=== PATIENT | female | born 1935 | race Caucasian/White ===

== ENCOUNTER 2017-09-23 22:18 | Emergency (ER) | payer MEDICARE ==
[~2017-09-23] VITALS: Ht 167.6 cm; Wt 54.4 kg
[~2017-09-23 22:18] MED LIST: ASPI81 CHEW; ATOR40TA49 PO; FURO10S PO; GLUCTAB PO; LISI30TA44 PO; MACR100C PO; METO100T PO; OMEP20TA39 PO
[2017-09-23 22:30] VITALS: BP 185/80; PULSE 73; RESP 20; TEMP 97.5; O2SAT 97
--- NOTE | 2017-09-23 22:44 | PD ---
HPI Chief Complaint: Complaint Time Seen by Provider: 22:39 Travel History International Travel<30 days: No Contact w/Intl Traveler<30days: No Traveled to known affect area: No History of Present Illness HPI The patient is an 82-year-old female that complains of dysuria, frequency and urgency and a minimal amount of flank pain for 4 days. She denies any fever, nausea or vomiting. She had a similar episode 2 years ago for which she was successfully treated with Macrobid. She is not sexually active and she does wipe correctly after a bowel movement. PFSH Past Medical History Cardiac Catheterization: Yes (stents placed.) High Cholesterol: Yes Diabetes: Yes Diminished Hearing: No Genitourinary: Yes (UTI's) Hypertension: Yes Menopausal: Yes Past Surgical History Appendectomy: Yes Coronary Stent: Yes Social History Alcohol Use: No Tobacco Use: No Substance Use: No Allergies-Medications (Allergen,Severity, Reaction): Coded Allergies: shellfish derived (Verified Allergy, Intermediate, Hives, 09/23/17) Sulfa (Sulfonamide Antibiotics) (Unverified Allergy, Unknown, 05/31/17) pt sts she is unsure "doesnt agree w me" penicillin G (Unverified Allergy, Unknown, 05/31/17) unk per pt, sts "20 years ago" Reported Meds & Prescriptions Reported Meds & Active Scripts Active Pyridium (Phenazopyridine HCl) 100 Mg Tab 100 Mg PO Q8H PRN Macrobid (Nitrofurantoin Monoh/Nitrofur Macro) 100 Mg Cap 100 Mg PO BID 10 Days Macrobid (Nitrofurantoin Macrocrystals) 100 Mg Cap 100 Mg PO BID 7 Days Reported Lasix (Furosemide) 40 Mg Tab 40 Mg PO DAILY Lipitor (Atorvastatin Calcium) 40 Mg Tab 40 Mg PO HS Starlix (Nateglinide) 60 Mg Tab 60 Mg PO DAILY Metformin (Metformin HCl) 500 Mg Tab 500 Mg PO TIDPC Omeprazole 20 Mg Tab 20 Mg PO DAILY PRN Metoprolol Tartrate 50 Mg Tab 50 Mg PO BID Lisinopril 30 Mg Tab 30 Mg PO DAILY Aspirin Low Dose (Aspirin) 81 Mg Chew 81 Mg CHEW DAILY Furosemide 10 Mg/Ml [place] 20 Mg PO DIRECTED Review of Systems Except as stated in HPI: all other systems reviewed are Neg Physical Exam Narrative GENERAL: The patient is alert, oriented 3 and slight apparent distress with her urinary symptoms. Her vital signs show blood pressure 185/80 but otherwise normal. SKIN: Focused skin assessment warm/dry. HEAD: Atraumatic. Normocephalic. EYES: Pupils equal and round. No scleral icterus. No injection or drainage. ENT: No nasal bleeding or discharge. Mucous membranes pink and moist. NECK: Trachea midline. No JVD. CARDIOVASCULAR: Regular rate and rhythm. No murmur appreciated. RESPIRATORY: No accessory muscle use. Clear to auscultation. Breath sounds equal bilaterally. GASTROINTESTINAL: Abdomen soft, with slight discomfort on the suprapubic area midline, nondistended. Hepatic and splenic margins not palpable. There is minimal right flank tenderness on direct palpation. No guarding or rebound is present. MUSCULOSKELETAL: No obvious deformities. No clubbing. No cyanosis. No edema. NEUROLOGICAL: Awake and alert. No obvious cranial nerve deficits. Motor grossly within normal limits. Normal speech. PSYCHIATRIC: Appropriate mood and affect; insight and judgment normal. Data Data Last Documented VS Vital Signs Date Time Temp Pulse Resp B/P (MAP) Pulse Ox O2 Delivery O2 Flow Rate FiO2 09/23/17 23:33 72 18 203/82 (122) 98 09/23/17 22:30 97.5 Orders Orders Urinalysis - C+S If Indicated (09/23/17 22:49) Urine Culture (09/23/17 22:40) Nitrofurantoin Monohyd Macrocr (Macrobid (09/23/17 23:15) Phenazopyridine (Pyridium) (09/23/17 23:15) Labs Laboratory Tests Test 09/23/17 22:40 Urine Color YELLOW Urine Turbidity CLOUDY Urine pH 6.0 Urine Specific [place] 1.012 Urine Protein TRACE mg/dL Urine Glucose (UA) NEG mg/dL Urine Ketones NEG mg/dL Urine Occult Blood MOD Urine Nitrite POS Urine Bilirubin NEG Urine Leukocyte Esterase LARGE Urine RBC 10-14 /hpf Urine WBC INNUM /hpf Urine Squamous Epithelial Cells 0-5 /hpf Urine Bacteria MANY /hpf Microscopic Urinalysis Comment CULTURE INDICATED MDM Medical Decision Making Medical Screen Exam Complete: Yes Emergency Medical Condition: Yes Medical Record Reviewed: Yes Interpretation(s) The urine shows cloudy turbidity, moderate occult blood, positive nitrite, large leukocyte Estrace with 10-14 red cells and innumerable white cells with many bacteria and culture is indicated. Differential Diagnosis Cystitis, pyelonephritis, interstitial cystitis-highly unlikely Narrative Course The patient has a cystitis. She does have some slight flank pain which may be an early pyelonephritis but most all of her symptoms are cystitis. She is to increase her liquid intake, is given Macrobid 100 mg twice daily for 10 days and Pyridium. Diagnosis Primary Impression: Cystitis Additional Instructions: The antibiotic is one tablet twice daily for 10 days. Drink plenty of liquids to establish a good urine flow through your kidneys. The Pyridium is one tablet 3 times daily as needed to reduce your symptoms. Med/Other Pt SpecificInfo: Prescription(s) given Scripts Phenazopyridine (Pyridium) 100 Mg Tab 100 MG PO Q8H Y for DYSURIA, #15 TAB 0 Refills Prov: Manfred Villanueva MD 09/23/17 Nitrofurantoin Monohydrate Macrocrystals (Macrobid) 100 Mg Cap 100 MG PO BID for Infection for 10 Days, #20 CAP 0 Refills Prov: Manfred Villanueva MD 09/23/17 Disposition: 01 DISCHARGE HOME Condition: Stable Manfred Villanueva MD Sep 23, 2017 22:44
[2017-09-23 22:55] LABS: BLOOD, URINE MOD (NEG); GLUCOSE,URINE NEG (NEG); KETONE, URINE NEG (NEG); NITRITE,URINE POS (NEG)
[2017-09-23 22:58] LABS: URINE COLOR YELLOW (YELLW/STRAW)
[2017-09-23 22:59] LABS: BACTERIA, URINE MANY /hpf; COMMENT (UR) CULTURE INDICATED; CULTURE IF INDICATED CULTURE INDICATED; SQUAMOUS EPITHELIAL CELL URINE 0-5 /hpf (0-5); WBC, URINE INNUM /hpf (0-5)
[2017-09-23] MEDS ORDERED: METO50TA PO (23:03)
[2017-09-23] MEDS ORDERED: ASPI81CH6 CHEW (23:03)
[2017-09-23] MEDS ORDERED: METF500T PO (23:03)
[2017-09-23] MEDS ORDERED: LISI30TA4 PO (23:03)
[2017-09-23] MEDS ORDERED: OMEP20TA93 PO (23:03)
[2017-09-23] MEDS ORDERED: LIPI40TA PO (23:03)
[2017-09-23] MEDS ORDERED: STAR60TA PO (23:03)
[2017-09-23] MEDS ORDERED: FURO1TAB60 PO (23:03)
[2017-09-23] MEDS ORDERED: MACR100C2 PO (23:09)
[2017-09-23] MEDS ORDERED: PHEN0.4T PO (23:09)
[2017-09-23] MEDS ORDERED: NITROFURANTOIN MONOHYD MACROCR 100 MG CAP PO ONE (23:15)
[2017-09-23] MEDS ORDERED: PHENAZOPYRIDINE HCL 100 MG TAB PO ONE (23:15)
[2017-09-23 23:33] VITALS: BP 203/82
== END 2017-09-23 23:33 | disposition home or self-care (01) ==
LOC: PHED 22:18
DX: N30.91 Cystitis, unspecified with hematuria (principal); B96.20 Unspecified Escherichia coli [E. coli] as the cause of diseases classified elsewhere; E11.9 Type 2 diabetes mellitus without complications; I10 Essential (primary) hypertension; E78.00 Pure hypercholesterolemia, unspecified; Z79.84 Long term (current) use of oral hypoglycemic drugs; Z87.440 Personal history of urinary (tract) infections
CPT/HCPCS: 81001; 87077; 87086; 87186; 99283

== ENCOUNTER 2017-10-14 20:44 | Emergency (ER) | payer MEDICARE ==
[~2017-10-14 20:44] MED LIST changes: -ASPI81 CHEW; +ASPI81CH6 CHEW; -ATOR40TA49 PO; +FURO1TAB60 PO; -GLUCTAB PO; +LIPI40TA PO; +LISI30TA4 PO; -LISI30TA44 PO; +MACR100C2 PO; +METF500T PO; -METO100T PO; +METO50TA PO; -OMEP20TA39 PO; +OMEP20TA93 PO; +PHEN0.4T PO; +STAR60TA PO
[2017-10-14 20:50] VITALS: BP 162/70; PULSE 73; RESP 20; TEMP 97.7; O2SAT 97
--- NOTE | 2017-10-14 21:12 | PD ---
HPI Chief Complaint: Complaint Time Seen by Provider: 21:03 Travel History International Travel<30 days: No Contact w/Intl Traveler<30days: No Traveled to known affect area: No History of Present Illness HPI The patient is an 82-year-old female that I saw on the of this month for urinary tract infection-cystitis. She was given a 10 day course of Macrobid and did well while she was on Macrobid and until several days ago when she started complaining of frequency and dysuria and urgency. She does wipe from front to back when having a bowel movement and cannot identify any problems while she is having a recurrent urinary tract infection. She denies any nausea , vomiting, fever and has some minimal flank pain on the left. PFSH Past Medical History Cardiac Catheterization: Yes (stents placed.) High Cholesterol: Yes Chest Pain: Yes Coronary Artery Disease: Yes Diabetes: Yes Diminished Hearing: No Genitourinary: Yes (UTI's) Hypertension: Yes Menopausal: Yes : 5 Para: 6 Past Surgical History Appendectomy: Yes Coronary Stent: Yes Eye Surgery: Yes Oral Surgery: Yes (TOOTH EXTRACTION) Social History Alcohol Use: No Tobacco Use: No Substance Use: No Allergies-Medications (Allergen,Severity, Reaction): Coded Allergies: shellfish derived (Verified Allergy, Intermediate, Hives, 10/14/17) Sulfa (Sulfonamide Antibiotics) (Unverified Allergy, Unknown, 10/14/17) pt sts she is unsure "doesnt agree w me" penicillin G (Unverified Allergy, Unknown, 10/14/17) unk per pt, sts "20 years ago" Reported Meds & Prescriptions Reported Meds & Active Scripts Active Reported Lasix (Furosemide) 40 Mg Tab 40 Mg PO DAILY Lipitor (Atorvastatin Calcium) 40 Mg Tab 40 Mg PO HS Starlix (Nateglinide) 60 Mg Tab 60 Mg PO DAILY Metformin (Metformin HCl) 500 Mg Tab 500 Mg PO TIDPC Omeprazole 20 Mg Tab 20 Mg PO DAILY PRN Metoprolol Tartrate 50 Mg Tab 50 Mg PO BID Lisinopril 30 Mg Tab 30 Mg PO DAILY Aspirin Low Dose (Aspirin) 81 Mg Chew 81 Mg CHEW DAILY Review of Systems Except as stated in HPI: all other systems reviewed are Neg Physical Exam Narrative GENERAL: The patient is alert, oriented 3 in minimal apparent distress with her urinary symptoms. Her vital signs are normal. SKIN: Focused skin assessment warm/dry. HEAD: Atraumatic. Normocephalic. EYES: Pupils equal and round. No scleral icterus. No injection or drainage. ENT: No nasal bleeding or discharge. Mucous membranes pink and moist. NECK: Trachea midline. No JVD. CARDIOVASCULAR: Regular rate and rhythm. No murmur appreciated. RESPIRATORY: No accessory muscle use. Clear to auscultation. Breath sounds equal bilaterally. GASTROINTESTINAL: Abdomen soft, with minimal tenderness over the left flank, nondistended. Hepatic and splenic margins not palpable. No guarding or rebound is present. MUSCULOSKELETAL: No obvious deformities. No clubbing. No cyanosis. No edema. NEUROLOGICAL: Awake and alert. No obvious cranial nerve deficits. Motor grossly within normal limits. Normal speech. PSYCHIATRIC: Appropriate mood and affect; insight and judgment normal. Data Data Last Documented VS Vital Signs Date Time Temp Pulse Resp B/P (MAP) Pulse Ox O2 Delivery O2 Flow Rate FiO2 10/14/17 20:50 20 Orders Orders Urinalysis - C+S If Indicated (10/14/17 21:04) Urine Culture (10/14/17 21:00) Labs Laboratory Tests Test 10/14/17 21:00 Urine Color YELLOW Urine Turbidity MOD Urine pH 7.5 Urine Specific [place] 1.018 Urine Protein 30 mg/dL Urine Glucose (UA) NEG mg/dL Urine Ketones NEG mg/dL Urine Occult Blood SMALL Urine Nitrite NEG Urine Bilirubin NEG Urine Leukocyte Esterase LARGE Urine RBC 4-9 /hpf Urine WBC 100-200 /hpf Urine WBC Clumps FEW Urine Squamous Epithelial Cells 0-5 /hpf Urine Bacteria OCC /hpf Microscopic Urinalysis Comment CULTURE INDICATED MDM Medical Decision Making Medical Screen Exam Complete: Yes Emergency Medical Condition: Yes Medical Record Reviewed: Yes Interpretation(s) The urine shows moderate turbidity, small occult blood, large leukocyte esterase with 102 100 white cells with a few white cell clumping's and occasional bacteria and culture is indicated. Differential Diagnosis Cystitis, pyelonephritis, interstitial cystitis, herpes simplex-unlikely Narrative Course The patient appears to have a cystitis. She will be given Cipro 500 mg twice daily for 10 days and follow-up with her primary care physician back in [place]. Diagnosis Primary Impression: Cystitis Additional Instructions: The antibiotic is one tablet twice daily for 10 days. Follow-up with your primary care physician in [place] when you get back. As always with a urinary tract infection and increased liquid intake to establish a good urine flow across your kidneys. Med/Other Pt SpecificInfo: Prescription(s) given Scripts Ciprofloxacin (Cipro) 500 Mg Tab 500 MG PO BID for Infection for 10 Days, #20 TAB 0 Refills Prov: Manfred Villanueva MD 10/14/17 Disposition: 01 DISCHARGE HOME Condition: Stable Manfred Villanueva MD Oct 14, 2017 21:12
[2017-10-14 21:19] LABS: BILIRUBIN, URINE NEG (NEG); BLOOD, URINE SMALL (NEG); GLUCOSE,URINE NEG (NEG); KETONE, URINE NEG (NEG); NITRITE,URINE NEG (NEG); PH, URINE 7.5 (5.0-8.5); URINE LEUKOCYTE ESTERASE LARGE (NEG)
[2017-10-14 21:23] LABS: URINE COLOR YELLOW (YELLW/STRAW); WBC, URINE 100-200 /hpf (0-5)
[2017-10-14 21:24] LABS: SQUAMOUS EPITHELIAL CELL URINE 0-5 /hpf (0-5); WHITE BLOOD CELL CLUMPS FEW
[2017-10-14 21:25] LABS: BACTERIA, URINE OCC /hpf
[2017-10-14] MEDS ORDERED: CIPR-9 PO (21:42)
[2017-10-14] MEDS ORDERED: CIPROFLOXACIN 500 MG TAB PO ONE (21:45)
== END 2017-10-14 21:55 | disposition home or self-care (01) ==
LOC: PHED 20:44
DX: N30.90 Cystitis, unspecified without hematuria (principal); E78.00 Pure hypercholesterolemia, unspecified; I25.10 Atherosclerotic heart disease of native coronary artery without angina pectoris; E11.9 Type 2 diabetes mellitus without complications; I10 Essential (primary) hypertension; Z79.82 Long term (current) use of aspirin; Z79.899 Other long term (current) drug therapy
CPT/HCPCS: 81001; 87086; 99283

== ENCOUNTER 2017-12-09 22:35 | Emergency (ER) | payer MEDICARE ==
[~2017-12-09] VITALS: Ht 167.6 cm; Wt 52.9 kg
[~2017-12-09 22:35] MED LIST changes: +CIPR-9 PO; -FURO10S PO; -MACR100C PO; -MACR100C2 PO; -PHEN0.4T PO
[2017-12-09 22:41] VITALS: BP 197/81; PULSE 72; RESP 18; TEMP 97.4; O2SAT 99
[2017-12-10 02:30] VITALS: BP 165/85; PULSE 75; RESP 18; TEMP 97.5; O2SAT 98
[2017-12-10 03:35] LABS: BILIRUBIN, URINE NEG (NEG); BLOOD, URINE MOD (NEG); GLUCOSE,URINE NEG (NEG); KETONE, URINE NEG (NEG); NITRITE,URINE NEG (NEG); PH, URINE 5.5 (5.0-8.5); URINE LEUKOCYTE ESTERASE TRACE (NEG)
[2017-12-10 03:40] LABS: URINE COLOR YELLOW (YELLW/STRAW)
[2017-12-10 03:41] LABS: SQUAMOUS EPITHELIAL CELL URINE 0-5 /hpf (0-5); WHITE BLOOD CELL CLUMPS MOD
[2017-12-10] MEDS ORDERED: PHEN0.4T PO (03:57)
[2017-12-10] MEDS ORDERED: MACR100C2 PO (03:57)
[2017-12-10] MEDS ORDERED: DOXYCYCLINE HYCLATE 100 MG CAP PO ONE (04:00)
[2017-12-10] MEDS ORDERED: DOXY100C PO (04:00)
[2017-12-10] MEDS ORDERED: NITROFURANTOIN MONOHYD MACROCR 100 MG CAP PO ONE (04:00)
--- NOTE | 2017-12-10 04:00 | PD ---
HPI Chief Complaint: Complaint Time Seen by Provider: 03:16 Travel History International Travel<30 days: No Contact w/Intl Traveler<30days: No Traveled to known affect area: No History of Present Illness HPI 82-year-old female presents to the emergency department with complaint of rash and dysuria with hematuria. Patient was on antibiotic that she completed approximately 1 week ago. Patient states symptoms are worsening. Patient was seen twice in September for same symptoms and placed on different antibiotics. Daughter is at bedside very frustrated with her parent but reports that 1 of the antibiotics was successful resolving her symptoms. Daughter reports rash the patient complains of his chronic and is not new and not related to this event. Rashes not started associated with antibiotic use. No report of fever vomiting diarrhea or mucoid/bloody stools. Patient denies any abdominal pain or flank pain. PFSH Past Medical History Narrative Medical CAD cardiac catheterization hypertension dyslipidemia recurrent UTIs stent; no tobacco use; nursing notes reviewed Cardiac Catheterization: Yes (stents placed.) High Cholesterol: Yes Chest Pain: Yes Coronary Artery Disease: Yes Diabetes: Yes Patient Takes Glucophage: Yes Diminished Hearing: No Genitourinary: Yes (UTI's) Hypertension: Yes Tetanus Vaccination: > 5 Years Influenza Vaccination: Yes ?: Not Menopausal: Yes : 5 Para: 6 Past Surgical History Appendectomy: Yes Coronary Stent: Yes Eye Surgery: Yes Oral Surgery: Yes (TOOTH EXTRACTION) Social History Alcohol Use: No Tobacco Use: No Substance Use: No Allergies-Medications (Allergen,Severity, Reaction): Coded Allergies: shellfish derived (Verified Allergy, Intermediate, Hives, 12/09/17) Sulfa (Sulfonamide Antibiotics) (Unverified Allergy, Unknown, 12/09/17) pt sts she is unsure "doesnt agree w me" penicillin G (Unverified Allergy, Unknown, 12/09/17) unk per pt, sts "20 years ago" Reported Meds & Prescriptions Reported Meds & Active Scripts Active Doxycycline Hyclate 100 Mg Cap 100 Mg PO BID Pyridium (Phenazopyridine HCl) 100 Mg Tab 100 Mg PO Q8H PRN Reported Lasix (Furosemide) 40 Mg Tab 40 Mg PO DAILY Lipitor (Atorvastatin Calcium) 40 Mg Tab 40 Mg PO HS Starlix (Nateglinide) 60 Mg Tab 60 Mg PO DAILY Metformin (Metformin HCl) 500 Mg Tab 500 Mg PO TIDPC Omeprazole 20 Mg Tab 20 Mg PO DAILY PRN Metoprolol Tartrate 50 Mg Tab 50 Mg PO BID Lisinopril 30 Mg Tab 30 Mg PO DAILY Aspirin Low Dose (Aspirin) 81 Mg Chew 81 Mg CHEW DAILY Review of Systems Except as stated in HPI: all other systems reviewed are Neg General / Constitutional: No: Fever, Chills HENT: No: Congestion Cardiovascular: No: Chest Pain or Discomfort Respiratory: No: Shortness of Breath Gastrointestinal: No: Nausea, Vomiting, Abdominal Pain Genitourinary: Positive: Frequency, Dysuria Musculoskeletal: No: Myalgias, Arthralgias Skin: Positive Rash, Positive Itching (Chronic) Neurologic: No: Weakness ( chronic) Psychiatric: No: Anxiety Hematologic/Lymphatic: No: Lymph Node Enlargement Physical Exam Narrative GENERAL: Pleasant elderly female in no acute distress no respiratory distress SKIN: Warm and dry. HEAD: Normocephalic. EYES: No scleral icterus. No injection or drainage. NECK: Supple, trachea midline. No JVD or lymphadenopathy. CARDIOVASCULAR: Regular rate and rhythm without murmurs, gallops, or rubs. RESPIRATORY: Breath sounds equal bilaterally. No accessory muscle use. GASTROINTESTINAL: Abdomen soft, non-tender, nondistended. MUSCULOSKELETAL: No cyanosis, or edema. BACK: Nontender without obvious deformity. No CVA tenderness. Data Data Last Documented VS Orders Orders Urinalysis - C+S If Indicated (12/10/17 03:16) Urine Culture (12/10/17 03:20) Nitrofurantoin Monohyd Macrocr (Macrobid (12/10/17 04:00) Ed Discharge Order (12/10/17 03:55) Doxycycline (Vibramycin) (12/10/17 04:00) Labs Laboratory Tests Test 12/10/17 03:20 Urine Color YELLOW Urine Turbidity CLEAR Urine pH 5.5 Urine Specific [place] 1.013 Urine Protein NEG mg/dL Urine Glucose (UA) NEG mg/dL Urine Ketones NEG mg/dL Urine Occult Blood MOD Urine Nitrite NEG Urine Bilirubin NEG Urine Leukocyte Esterase TRACE Urine RBC 4-9 /hpf Urine WBC 50-99 /hpf Urine WBC Clumps MOD Urine Squamous Epithelial Cells 0-5 /hpf Microscopic Urinalysis Comment CULTURE INDICATED MDM Medical Decision Making Medical Screen Exam Complete: Yes Emergency Medical Condition: Yes Medical Record Reviewed: Yes Interpretation(s) UA positive white blood cells positive bacteria culture indicated Differential Diagnosis UTI, pyelonephritis, obstructive uropathy, diverticulitis Narrative Course Pleasant asymptomatic female; patient provided urine specimen Urinalysis concerning for urinary tract infection --white blood cells leukocyte esterase red blood cells culture indicated Medical record reviewed and culture reports reviewed from September; patient was placed on doxycycline Patient stable for outpatient management and follow-up with her primary care/ managing provider Diagnosis Primary Impression: UTI (urinary tract infection) Referrals: Primary Care Physician call for appointment Patient Instructions: General Instructions Additional Instructions: Encourage increase fluid hydration Take medications as prescribed Follow-up with primary care provider Take as tolerated acetaminophen/Tylenol every 4 hours for fever 100.4F or greater Return to the emergency department as needed Med/Other Pt SpecificInfo: Prescription(s) given Scripts Doxycycline Hyclate (Doxycycline Hyclate) 100 Mg Cap 100 MG PO BID for Infection, #20 CAP 0 Refills Prov: Tanya Oden MD 12/10/17 Phenazopyridine (Pyridium) 100 Mg Tab 100 MG PO Q8H Y for DYSURIA, #6 TAB 0 Refills Prov: Tanya Oden MD 12/10/17 Disposition: 01 DISCHARGE HOME Condition: Stable Tanya Oden MD Dec 10, 2017 04:00
[2017-12-10 04:19] VITALS: BP 159/82; PULSE 80; RESP 16; TEMP 97.5; O2SAT 97
== END 2017-12-10 04:20 | disposition home or self-care (01) ==
LOC: PHED 22:35
DX: N39.0 Urinary tract infection, site not specified (principal); R31.9 Hematuria, unspecified; I10 Essential (primary) hypertension; I25.10 Atherosclerotic heart disease of native coronary artery without angina pectoris; E78.00 Pure hypercholesterolemia, unspecified; E11.9 Type 2 diabetes mellitus without complications; Z87.440 Personal history of urinary (tract) infections; Z88.2 Allergy status to sulfonamides; Z88.0 Allergy status to penicillin; Z79.84 Long term (current) use of oral hypoglycemic drugs; Z79.899 Other long term (current) drug therapy
CPT/HCPCS: 81001; 87086; 99283